=== PATIENT | male | born 1980 | race Hispanic/Latino ===

== ENCOUNTER 2020-08-11 12:20 | Emergency (ER) | payer SELFPAY ==
--- OUTSIDE RECORDS SUMMARY | 2020-08-11 12:22 | XMS REPORT | Continuity of Care Document ---
:1980 Author Organization [facility] t Address [address] [place] [address] Dr. Curtis [address] [place] [id number] Care Team Providers Name Role Phone Unavailable Unavailable Unavailable Problems This patient has no known problems. Allergies, Adverse Reactions, Alerts This patient has no known allergies or adverse reactions. Medications This patient has no known medications. Procedures This patient has no known procedures. Results This patient has no known results.
--- NOTE | 2020-08-11 15:20 | RAD REPORT ---
EXAM DESCRIPTION: RAD - Chest Pa And Lat (2 Views) - 08/11/2020 3:01 pm CLINICAL HISTORY: COUGH Chest pain. COMPARISON: ABDOMEN 1 VIEW KUB dated 09/30/2012; ABDOMEN ACUTE SERIES dated 01/28/2001 FINDINGS: Mild interstitial prominence bilaterally likely indicates a viral infection. No focal cons olidation typical of bacterial pneumonia. The heart is normal in size. No displaced fractures.
--- NOTE | 2020-08-11 16:25 | EDPHYS ---
Physician Documentation [facility] Name: Raudel Shaw Age: 40 yrs Sex: Male : 1980 Arrival Date: 08/11/2020 Time: 12:24 Bed 6 Private MD: ED Physician Lito Sher HPI: 08/11 16:18 This 40 yrs old Male presents to ER via Ambulatory with complaints of COVID+, cp Shortness Of Breath. 16:18 The patient or guardian reports cough, with no sputum. cp 16:18 Onset: The symptoms/episode began/occurred last week. Associated signs and symptoms: cp Pertinent positives: diarrhea, fever, bilateral mid back pain, Pertinent negatives: chest pain, sore throat. Severity of symptoms: in the emergency department the symptoms are unchanged despite home interventions. Patient reports he tested positive for COVID-19 5 days ago. Historical: - Allergies: 12:53 No Known Allergies; ll1 - PMHx: 12:53 None; ll1 - PSHx: 12:53 Cholecystectomy; ll1 - Immunization history:: Flu vaccine is not up to date. - Social history:: Smoking status: Patient denies any tobacco usage or history of. ROS: 16:20 Eyes: Negative for injury, pain, redness, and discharge. cp 16:20 Constitutional: Negative for body aches, chills, fever, poor PO intake. 16:20 Cardiovascular: Negative for chest pain, edema, palpitations. 16:20 Respiratory: Positive for cough, "sounds productive", shortness of breath, on exertion. Negative for hemoptysis, wheezing. 16:20 Abdomen/GI: Negative for abdominal pain, nausea, vomiting, and diarrhea. 16:20 Neuro: Negative for altered mental status, syncope, weakness. 16:20 All other systems are negative. Exam: 16:21 Head/Face: Normocephalic, atraumatic. cp 16:21 Constitutional: The patient appears in no acute distress, alert, awake, non-diaphoretic, non-toxic, well developed, well nourished. 16:21 Eyes: Periorbital structures: appear normal, Conjunctiva: normal, no exudate, no injection, Sclera: no appreciated abnormality, Lids and lashes: appear normal, bilaterally. 16:21 ENT: External ear(s): are unremarkable, Nose: is normal, Posterior pharynx: Airway: no evidence of obstruction, patent. 16:21 Neck: ROM/movement: is normal, is supple, without pain, no range of motions limitations. 16:21 Chest/axilla: Inspection: normal, Palpation: is normal, no crepitus, no tenderness. 16:21 Cardiovascular: Rate: tachycardic, Rhythm: regular, Edema: is not appreciated, JVD: is not appreciated. 16:21 Respiratory: the patient does not display signs of respiratory distress, Respirations: normal, no use of accessory muscles, no retractions, labored breathing, is not present, Breath sounds: bronchial sounds, that are mild, are heard in the , bilateral lower lung dominguez, stridor, is not appreciated, wheezing: is not appreciated. 16:21 Abdomen/GI: Inspection: abdomen appears normal, Palpation: abdomen is soft and non-tender, in all quadrants. Vital Signs: 12:50 BP 116 / 87; Pulse 109; Resp 18; Temp 97.7; Pulse Ox 97% on R/A; Weight 89.81 kg; ll1 Height 5 ft. 7 in. (170.18 cm); Pain 7/10; 16:10 BP 119 / 79; Pulse 97; Resp 16; Temp 97.9; Pulse Ox 97% ; bp 12:50 Body Mass Index 31.01 (89.81 kg, 170.18 cm) ll1 MDM: 16:18 Differential diagnosis: bronchitis, flu, pneumonia, less likely pulmonary embolism. cp 16:23 Patient medically screened. cp 16:25 Data reviewed: vital signs, nurses notes, radiologic studies, plain films. cp 16:25 Test interpretation: by ED physician or midlevel provider: plain radiologic studies. cp Counseling: I had a detailed discussion with the patient and/or guardian regarding: the historical points, exam findings, and any diagnostic results supporting the discharge/admit diagnosis, radiology results, the need for outpatient follow up, a family practitioner, to return to the emergency department if symptoms worsen or persist or if there are any questions or concerns that arise at home. ED course: VSS. Patient appears non-toxic and no signs of respiratory distress. Will discharge to home for continued monitoring. 08/11 14:05 Order name: Chest Pa And Lat (2 Views) XRAY; Complete Time: 16:04 kb Administered Medications: No medications were administered Disposition: 18:50 Co-signature as Attending Physician, Lito Sher MD I agree with the assessment and kdr plan of care. Disposition: 08/11/20 16:25 Discharged to Home. Impression: Coronavirus infection, unspecified, Pneumonia due to other specified infectious organisms - bilateral lower lung. - Condition is Stable. - Discharge Instructions: Community-Acquired Pneumonia, Adult, COVID-19. - Prescriptions for Tessalon Perles 100 mg Oral Capsule - take 2 capsule by ORAL route every 8 hours As needed; 30 capsule. Zithromax Z- Dimitry 250 mg Oral Tablet - take 1 tablet by ORAL route as directed for 5 days Day 1 - take two (2) tablets one time. Day 2, 3, 4 , 5 take one (1) tablet once daily.; 6 tablet. Prednisone 20 mg Oral Tablet - take 1 tablet by ORAL route every 12 hours for 5 days then 1/2 tablet every 12 hours for 5 days; 15 tablet. Albuterol Sulfate 90 mcg/actuation - inhale 1-2 puff by INHALATION route every 4-6 hours; 1 Inhaler. ivermectin 3 mg Oral tablet - take 6 tablet by ORAL route every other day x2 dose; 12 tablet. - Medication Reconciliation Form, Thank You Letter, Antibiotic Education, Prescription Opioid Use, Work release form form. - Follow up: Private Physician; When: 2 - 3 days; Reason: Recheck today's complaints. - Problem is new. - Symptoms are unchanged. Signatures: Dispatcher [employer] [facility] Lito Sher MD [facility] Byron Franco PA PA cp Peltier, Brian, RN RN Oc Posadas RN RN ll1 Corrections: (The following items were deleted from the chart) 16:42 16:25 08/11/2020 16:25 Discharged to Home. Impression: Coronavirus infection, bp unspecified; Pneumonia due to other specified infectious organisms - bilateral lower lung. Condition is Stable. Forms are Medication Reconciliation Form, Thank You Letter, Antibiotic Education, Prescription Opioid Use. Follow up: Private Physician; When: 2 - 3 days; Reason: Recheck today's complaints. Problem is new. Symptoms are unchanged. cp 08/12 12:46 08/11 16:25 Differential diagnosis: bronchitis, flu, pneumonia, less likely pulmonary cp embolism cp
--- NOTE | 2020-08-11 16:25 | ER ---
Nurse's Notes [facility] Name: Raudel Shaw Age: 40 yrs Sex: Male : 1980 Arrival Date: 08/11/2020 Time: 12:24 Bed 6 Private MD: Diagnosis: Coronavirus infection, unspecified;Pneumonia due to other specified infectious organisms-bilateral lower lung Presentation: 08/11 12:50 Chief complaint: Patient states: Covid positive Friday at [facility]. Has had back pains ll1 with cough, fatigue, SOB since Friday. Fever 101 at home. + slight diarrhea. No appetite, but drinking gatorade. Coronavirus screen: Client denies travel out of the [place] in the last 14 days. chills, congestion, cough unrelated to allergies, difficulty breathing, fatigue, fever, muscle pain, shortness of breath, Client presents with at least one sign or symptom that may indicate coronavirus-19. Standard/surgical mask placed on the client. Ebola Screen: Patient denies travel to an Ebola-affected area in the 21 days before illness onset. Initial Sepsis Screen: Does the patient meet any 2 criteria? HR > 90 bpm. No. Patient's initial sepsis screen is negative. Does the patient have a suspected source of infection? Yes: Productive cough/pneumonia. Risk Assessment: Do you want to hurt yourself or someone else? Patient reports no desire to harm self or others. Onset of symptoms was August 08, 2020. 12:50 Method Of Arrival: Ambulatory ll1 12:50 Acuity: AARON 3 ll1 Triage Assessment: 16:10 General: Appears in no apparent distress. uncomfortable, Behavior is cooperative, bp appropriate for age, anxious. Pain: Complains of pain in back. EENT: Reports nasal congestion. Neuro: No deficits noted. Cardiovascular: No deficits noted. Respiratory: Reports cough that is Onset: The symptoms/episode began/occurred at an unknown time. the patient has mild shortness of breath. GI: Reports diarrhea. : No signs and/or symptoms were reported regarding the genitourinary system. Derm: No deficits noted. Musculoskeletal: No deficits noted. Historical: - Allergies: 12:53 No Known Allergies; ll1 - PMHx: 12:53 None; ll1 - PSHx: 12:53 Cholecystectomy; ll1 - Immunization history:: Flu vaccine is not up to date. - Social history:: Smoking status: Patient denies any tobacco usage or history of. Screenin:10 Abuse screen: Denies threats or abuse. Denies injuries from another. Nutritional bp screening: No deficits noted. Tuberculosis screening: No symptoms or risk factors identified. Fall Risk None identified. Assessment: 16:10 General: SEE TRIAGE NOTE. bp 16:40 Reassessment: PT D/C HOME AMBULATORY, DX WITH COVID PNEUMONIA. Cardiovascular: Rhythm bp is sinus rhythm. Respiratory: Airway is patent Respiratory effort is even, unlabored, Breath sounds are coarse bilaterally. Vital Signs: 12:50 BP 116 / 87; Pulse 109; Resp 18; Temp 97.7; Pulse Ox 97% on R/A; Weight 89.81 kg; ll1 Height 5 ft. 7 in. (170.18 cm); Pain 7/10; 16:10 BP 119 / 79; Pulse 97; Resp 16; Temp 97.9; Pulse Ox 97% ; bp 12:50 Body Mass Index 31.01 (89.81 kg, 170.18 cm) ll1 ED Course: 12:24 Patient arrived in ED. am4 12:53 Triage completed. ll1 12:54 Arm band placed on. ll1 15:01 Chest Pa And Lat (2 Views) XRAY In Process Unspecified. EDCT 16:02 Byron Franco PA is PHCP. cp 16:02 Lito Sher MD is Attending Physician. cp 16:08 Silvano Camarena, VALERIE is Primary Nurse. bp 16:10 Patient has correct armband on for positive identification. Bed in low position. Call bp light in reach. Side rails up X2. 16:40 No provider procedures requiring assistance completed. Patient did not have IV access bp during this emergency room visit. Administered Medications: No medications were administered Outcome: 16:25 Discharge ordered by MD. cp 16:40 Discharged to home ambulatory. bp 16:40 Condition: stable 16:40 Discharge instructions given to patient, Instructed on discharge instructions, follow up and referral plans. medication usage, Demonstrated understanding of instructions, follow-up care, medications, Prescriptions given X 5 16:42 Patient left the ED. bp Signatures: Dispatcher [employer] EDCT Byron Franco PA PA cp Silvano Camarena RN RN Oc Posadas RN RN ll1 Bailey Wolff am4
[2020-08-11 16:56] VITALS: O2SAT 97
[2020-08-11 16:57] VITALS: BP 119/79; TEMP 97.9
== END 2020-08-11 16:42 | disposition home or self-care (01) ==
LOC: ER 12:20
DX: U07.1 COVID-19 (principal); J16.8 Pneumonia due to other specified infectious organisms
CPT/HCPCS: 71046; 99284